=== PATIENT | male | born 1965 ===

== ENCOUNTER 2017-01-09 07:36 | Emergency (ER) | payer OTHER ==
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
== END 2017-01-09 09:00 | disposition home or self-care (01) ==
LOC: UCEAST 07:36
DX: L03.115 Cellulitis of right lower limb (principal); E78.5 Hyperlipidemia, unspecified
CPT/HCPCS: 87070; 87205; 99202; G0463